=== PATIENT | female | born 1985 | race Two or more races ===

== ENCOUNTER 2022-07-25 21:40 | Emergency (ER) | payer OTHER ==
[~2022-07-25] VITALS: Ht 177.8 cm; Wt 111.0 kg
[2022-07-25] MEDS ORDERED: ACETAMINOPHEN 325 MG TABLET PO ONE (23:00)
[2022-07-26 01:21] VITALS: BP 124/73
== END 2022-07-26 01:25 | disposition home or self-care (01) ==
LOC: EMS 21:43
DX: M79.644 Pain in right finger(s) (principal); M25.521 Pain in right elbow; F17.210 Nicotine dependence, cigarettes, uncomplicated
CPT/HCPCS: 99284; 73070-TC; 73090-TC; 73130-TC; Z7502; Z7610